=== PATIENT | male | born 1950 | race Caucasian/White ===

== ENCOUNTER 2018-01-21 14:24 | Inpatient (IN) ==
--- NOTE | 2018-01-21 15:01 | Emergency Department Note ---
ED Disposition Clinical Impression: Hypokalemia, Vomiting and diarrhea Disposition: Still a Patient Condition on Discharge: Good Referrals: David Thibodeaux MD [Primary Care Provider] - - Critical Care Critical Care Time: No Attestation: On 01/21/18, the high probability of a clinically significant, sudden or life threatening deterioration of the following system(s) required my full and direct attention, intervention and personal management. The time I documented below is in addition to time spent performing reported procedures but includes the following listed in this critical care notation. Medical Decision Making - Satish Inquiry Pt receiving controlled substance: No Vital Signs: 01/21/18 14:43 01/21/18 14:56 01/21/18 15:21 Temperature 98.0 F Temperature Source Temporal Artery Scan Pulse Rate [Right Brachial] 83 76 76 Respiratory Rate 24 20 18 Blood Pressure [Right Arm] 173/83 166/71 163/71 Blood Pressure Mean [Right Arm] 113 102 101 Blood Pressure Source [Right Arm] Automatic Cuff Automatic Cuff Automatic Cuff Blood Pressure Position [Right Arm] Sitting Sitting Sitting 02 Sat by Pulse Oximetry 97 95 95 Oxygen Delivery Method Room Air Room Air Room Air - Lab Data Lab Results 01/21/18 14:50: WBC 9.3, RBC 5.70, Hgb 15.9, Hct 48.4, MCV 85.0, MCH 27.9, MCHC 32.8, RDW 15.0, Plt Count 208, MPV 9.3, Neut % (Auto) 61.1, Lymph % (Auto) 26.5 , [place] % (Auto) 10.4 H, Eos % (Auto) 1.5, Baso % (Auto) 0.4, Neut # (Auto) 5.7, Lymph # (Auto) 2.5, [place] # (Auto) 1.0, Eos # (Auto) 0.1, Baso # (Auto) 0.0 01/21/18 14:50: Sodium 146 H, Potassium 2.8 L*, Chloride 109 H, Carbon Dioxide 26, Anion Gap 13.8, BUN 13, Creatinine 1.30, Estimated Creat Clear 69, Estimated GFR 55 L, Est GFR ( Amer) 67, Glucose 119 H, Calcium 9.0, Total Bilirubin 0.6, AST 10 L, ALT 32, Alkaline Phosphatase 84, Total Protein 7.2, Albumin 3.3 L, Globulin 3.9 H, Albumin/Globulin Ratio 0.8 L 01/21/18 14:50: Total Creatine Kinase 104, CK-MB (CK-2) 1.9, CK-MB (CK-2) Rel Index 1.8, Troponin I < 0.02 01/21/18 14:50: Urine Color Yellow, Urine Appearance Sl cloudy, Urine pH 7.0, Ur Specific [place] 1.010, Urine Protein 1+, Urine Glucose (UA) Negative, Urine Ketones Negative, Urine Blood Trace-i, Urine Nitrate Positive, Urine Bilirubin Negative, Urine Urobilinogen 0.2, Ur Leukocyte Esterase 3+ A, Urine WBC 20-50, Ur Squamous Epith Cells Occasional, Urine Bacteria 3+ 01/21/18 14:50: Lactic Acid 1.7 Result diagrams: 01/21/18 14:50 01/21/18 14:50 Orders (Tests/Meds): ED MEDICATIONS Generic Name Dose Route Start Last Admin Trade Name Freq PRN Reason Stop Dose Admin Sodium Chloride 1,000 mls @ 999 mls/hr 01/21/18 15:00 01/21/18 14:55 Sod Chlor 0.9% 1000ml Bag IV 01/21/18 16:00 999 mls/hr .Q1H1M DAVID Administration Discontinued Medications Generic Name Dose Route Start Last Admin Trade Name Freq PRN Reason Stop Dose Admin Ceftriaxone Sodium 1 gm/ 50 mls @ 100 mls/hr 01/21/18 15:30 Sodium Chloride IV 02/04/18 15:29 Q24H DAVID Protocol Potassium Chloride 40 meq 01/21/18 15:29 Klor-Con 20meq Tablet PO 01/21/18 15:30 ONCE ONE ORDERS Category Date Time Status XR chest portable Stat Exams 01/21/18 14:47 Taken Blood Culture Stat Micro 01/21/18 14:50 Received Urine Culture Stat Micro 01/21/18 14:50 Received - ECG Data Tracing #1 EKG interpreted by Bala Reeder MD: Rhythm: sinus Rate: 77 [place]: normal Ectopy: Premature atrial contractions, premature ventricular contractions Conduction: normal ST Segment Changes: Nonspecific T Wave Changes: none Q Waves: none No evidence of acute ischemia or injury - Physician Consults Physician Consulted: Pierre Thibodeaux Time: 15:37 Reason -: Admission Comment/Response: Agrees to admit the patient to the hospital. We discussed the patient's clinical information, including history, exam, laboratory and radiology results and ED course. Per hospital procedure, I will write temporary bridge inpatient orders on the patient. Specific orders requested by the admitting physician: No antibiotics at this time. He will see the patient today. 40 mEq of potassium now and tonight. IV fluids with potassium. General Adult HPI - General Chief complaint: Weakness Stated complaint: Nausea, vomitting, weakness Time Seen by Provider: 01/21/18 15:10 Mode of Arrival: Ambulatory Limitations: No Limitations Description of Symptoms (Recalled from ER Triage Doc. by RN): N/V/D AND WEAKNESS OVERALL X 2 WEEKS SINCE HE HAD HIS LAST "CANCER SHOT". STATES "I JUST FEEL SICK" ; HISTORY OF LIVER CA, BLADDER CA AND PROSTATE CA. - History of Present Illness HPI narrative: Complains of vomiting, diarrhea, and generalized weakness, low-grade fevers since chemotherapy shot 2 weeks ago. He has cancer in his liver, status post removal of bladder and prostate due to cancer. States that he has a ureterostomy and gets frequent urinary tract infections, which responded to Cipro. Cannot take Levaquin because it makes him sick. Also has a history of Clostridium difficile. - Related Data Home Medications Medication Instructions Recorded Confirmed albuterol sulfate 90 mcg/actuation 1 puff INHALATION Q4-6H PRN 11/21/17 breath activated powder inhaler alprazolam 0.5 mg tablet 0.25 mg PO BID 11/21/17 amlodipine 10 mg tablet 10 mg PO ONCE 11/21/17 bisoprolol fumarate 5 mg tablet 5 mg PO ONCE 11/21/17 budesonide-formoterol HFA 160 2 puff INHALATION BID 11/21/17 mcg-4.5 mcg/actuation aerosol inhaler diphenoxylate-atropine 2.5 1 tab PO Q6H PRN tab 11/21/17 mg-0.025 mg tablet hydrocodone 7.5 mg-acetaminophen 1 tab PO Q4-6H PRN 11/21/17 325 mg tablet lanreotide 60 mg/0.2 mL 60 mg SUB-Q Q4W 11/21/17 subcutaneous syringe levofloxacin 500 mg tablet 500 mg PO Q24H 11/21/17 loratadine 10 mg capsule 10 mg PO ONCE 11/21/17 Allergies Allergy/AdvReac Type Severity Reaction Status Date / Time Iodinated Contrast Media - Allergy Unknown Verified 11/21/17 12:39 Oral and [Iodinated Contrast Media - IV Dye] Penicillins Allergy Unknown Verified 11/21/17 12:39 sulfadimethoxine Allergy Unknown I-RASH Verified 11/21/17 12:39 [SULFADIMETHOXINE] hydromorphone [From DILAUDID] AdvReac Unknown HALLUCINATI Verified 11/21/17 12: 39 ON [facility] History I have reviewed the patient's past medical history: Yes Medical History: Reports:: Cancer, Chronic Obstructive Pulmonary Disease (COPD) , Hypertension Other Surgeries: Yes: Appendectomy, Colon Resection Comment: Radical cystectomy, Spinal tumor, I&D abd wall abcess, S/P Trach, Prostectomy, Urostomy - Social History Educational Level: Completed High School Smoking Status: Former smoker Tobacco Type: cigarettes Alcohol Intake: never Substance Use Type: denies use - Psychiatric History Expresses thoughts of harming self/others: None Suicide Plan Description: No Plan Family Hx:: Asthma, Cancer, Diabetes, Hypertension ROS Obtained: Yes All systems reviewed & no additional complaints - Constitutional Constitutional: Reports fever(s) (Low-grade) - Cardiovascular Cardiovascular: Denies chest pain - Gastrointestinal Gastrointestingal: Reports: diarrhea, nausea, vomiting - Neurologic Neurologic: Reports weakness (Generalized) Physical Exam - General General appearance: alert, in no apparent distress - Head Head exam: atraumatic, normocephalic, normal inspection - Eye Eye exam: Present: normal appearance, PERRL, EOMI - ENT ENT exam: Present: normal exam, normal oropharynx, mucous membranes moist, TM's normal bilaterally, normal external ear exam - Neck Neck exam: Present: normal inspection, full ROM, trachea midline. Absent: meningismus, lymphadenopathy - Chest Chest inspection: Present: normal inspection, symmetric chest wall rise. Absent : tenderness - Respiratory Respiratory exam: Present: normal lung sounds bilaterally. Absent: respiratory distress - Cardiovascular Cardiovascular exam: Present: regular rate, normal rhythm. Absent: JVD - Abdominal Exam Abdominal exam: Present: soft, normal bowel sounds. Absent: distention, tenderness, guarding - Extremities Exam Extremities exam: Present: normal inspection, full ROM, normal capillary refill. Absent: calf tenderness - Back Exam Back exam: Present: normal inspection. Absent: tenderness - Neurological Exam Neurological exam: Present: alert, oriented X3 - Psychiatric Psychiatric exam: Present: normal affect, normal mood - Skin Skin exam: Present: warm, dry, intact, normal color
[2018-01-21 15:02] LABS: Microscopic, Urine URINE MICROSCOPIC (MICROSCOPIC)
[2018-01-21 15:06] LABS: Appearance,Urine SL CLOUDY (Clear); Basophils % 0.4 % (0.1-2.0); Bilirubin,Urine Negative (Negative); Blood, Urine TRACE-I (Negative); Color,Urine YELLOW (Yellow); Eosinophils # 0.1 K/mm3 (0.0-0.4); Eosinophils % 1.5 % (0.1-12.0); Glucose,Urine (UA) Negative (Negative); Hematocrit 48.4 % (42.0-52.0); Hemoglobin 15.9 g/dL (14.1-18.0); Ketones,Urine Negative (Negative); Leukocyte Esterase,Urine 3+ (Negative); Lymphocytes # 2.5 K/mm3 (0.7-4.5); Lymphocytes % 26.5 K/mm3 (10-50); Mean Corpuscular HGB Conc 32.8 g/dL (31.8-35.4); Mean Corpuscular Hemoglobin 27.9 pg (27.0-31.2); Mean Platelet Volume 9.3 fl (7.4-10.4); Monocytes % 10.4 % (1.7-9.3); Neutrophils # 5.7 K/mm3 (1.8-7.8); Neutrophils % 61.1 % (37.0-80.0); Platelet Count 208 K/mm3 (142-424); Protein,Urine 1+ (Negative); Urobilinogen,Urine 0.2 EU/dl (0.2); White Blood Count 9.3 K/mm3 (4.8-10.8)
[2018-01-21 15:15] LABS: Bacteria,Urine 3+ /lpf; Squamous Epithelial Cell,Urine Occasional #/hpf (0-5); WBC,Urine 20-50 #/hpf (0-3)
[2018-01-21 15:16] LABS: Albumin Level 3.3 gm/dL (3.4-5.0); Albumin/Globulin Ratio 0.8 (1.1-1.8); Anion Gap 13.8 mEq/L (5-15); Bilirubin,Total 0.6 mg/dL (0.2-1.0); Globulin 3.9 gm/dl (1.3-3.2); Total Protein,Serum 7.2 gm/dL (6.4-8.2)
[2018-01-21 15:17] LABS: Potassium 2.8 mmoL/L (3.5-5.1)
[2018-01-21 15:20] LABS: Creatine Kinase 104 U/L (39-308)
--- NOTE | 2018-01-21 17:12 | History & Physical Report ---
*Admission Date: 01/21/18 *Chief complaint: fatigue, hypokalemia *History of present illness: Mr. Block is a 67yo M with Hx of cancer in his liver, status post removal of bladder and prostate due to cancer. He presents after receiving chemotherapy injection 2 weeks ago and developing prolonged vomiting, diarrhea, and generalized weakness, with low-grade fevers. States that he has this type of response to his chemo recently over the past few months, this episode is the most severe. He has not had celsa fever, complains of dull back ache but not pain consistent with his past UTIs. He has felt more fatigued and has a Hx of hypokalemia due to his report when he feels like this. Of note he has a ureterostomy and gets frequent urinary tract infections, which responded to Cipro. Cannot take Levaquin because it makes him sick. Also has a history of Clostridium difficile. at bedside is concerned that he may have C diff due to his loose stools. Otherwise denies lethargy, GARCIA, changes in vision, rashes. [facility] History Medical History: Reports:: Cancer, Chronic Obstructive Pulmonary Disease (COPD) , Hypertension Denies:: Diabetes Mellitus Type 1, Diabetes Mellitus Type 2, MRSA Other Surgeries: Yes: Appendectomy, Colon Resection Amputation: No Fractures: No - *Social History Educational Level: Attended High School Smoking Status: Former smoker Tobacco Type: cigarettes Alcohol Intake: never Substance Use Type: denies use Occupational Status: retired, disabled Housing: house Household Members: spouse - Psychiatric History Expresses thoughts of harming self/others: None Suicide Plan Description: No Plan *Family Hx:: Asthma, Cancer, Diabetes, Hypertension Review of Systems - Review of Systems Review of systems:: pertinent systems reviewed and negative unless documented below - *Neurologic Reports weakness (Generalized) Meds Home Medications Medication Instructions Recorded Confirmed Type albuterol sulfate 90 mcg/actuation 1 puff INHALATION Q4-6H PRN 11/21/17 History breath activated powder inhaler alprazolam 0.5 mg tablet 0.25 mg PO BID 11/21/17 01/21/18 History amlodipine 10 mg tablet 10 mg PO DAILY 11/21/17 01/21/18 History budesonide-formoterol HFA 160 2 puff INHALATION BID 11/21/17 01/21/18 History mcg-4.5 mcg/actuation aerosol inhaler diphenoxylate-atropine 2.5 1 tab PO Q6H PRN tab 11/21/17 01/21/18 History mg-0.025 mg tablet hydrocodone 7.5 mg-acetaminophen 1 tab PO Q4-6H PRN 11/21/17 01/21/18 History 325 mg tablet lanreotide 60 mg/0.2 mL 60 mg SUB-Q Q4W 11/21/17 01/21/18 History subcutaneous syringe loratadine 10 mg capsule 10 mg PO DAILY 11/21/17 01/21/18 History raNITIdine HCl [Zantac] 150 mg PO DAILY 01/21/18 01/21/18 History Allergies Allergy/AdvReac Type Severity Reaction Status Date / Time Iodinated Contrast Media - Allergy Unknown Verified 11/21/17 12:39 Oral and [Iodinated Contrast Media - IV Dye] Penicillins Allergy Unknown Verified 11/21/17 12:39 sulfadimethoxine Allergy Unknown I-RASH Verified 11/21/17 12:39 [SULFADIMETHOXINE] hydromorphone [From DILAUDID] AdvReac Unknown HALLUCINATI Verified 11/21/17 12: 39 ON Exam Vital signs and Labs for Last 24 Hours: Temp Pulse Resp BP Pulse Ox 97.8 F 71 18 188/70 96 01/21/18 16:39 01/21/18 16:39 01/21/18 16:39 01/21/18 16:39 01/21/18 16:39 Laboratory Results - last 24 hr 01/21/18 14:50: WBC 9.3, RBC 5.70, Hgb 15.9, Hct 48.4, MCV 85.0, MCH 27.9, MCHC 32.8, RDW 15.0, Plt Count 208, MPV 9.3, Neut % (Auto) 61.1, Lymph % (Auto) 26.5 , [place] % (Auto) 10.4 H, Eos % (Auto) 1.5, Baso % (Auto) 0.4, Neut # (Auto) 5.7, Lymph # (Auto) 2.5, [place] # (Auto) 1.0, Eos # (Auto) 0.1, Baso # (Auto) 0.0 01/21/18 14:50: Sodium 146 H, Potassium 2.8 L*, Chloride 109 H, Carbon Dioxide 26, Anion Gap 13.8, BUN 13, Creatinine 1.30, Estimated Creat Clear 69, Estimated GFR 55 L, Est GFR ( Amer) 67, Glucose 119 H, Calcium 9.0, Total Bilirubin 0.6, AST 10 L, ALT 32, Alkaline Phosphatase 84, Total Protein 7.2, Albumin 3.3 L, Globulin 3.9 H, Albumin/Globulin Ratio 0.8 L 01/21/18 14:50: Total Creatine Kinase 104, CK-MB (CK-2) 1.9, CK-MB (CK-2) Rel Index 1.8, Troponin I < 0.02 01/21/18 14:50: Urine Color Yellow, Urine Appearance Sl cloudy, Urine pH 7.0, Ur Specific [place] 1.010, Urine Protein 1+, Urine Glucose (UA) Negative, Urine Ketones Negative, Urine Blood Trace-i, Urine Nitrate Positive, Urine Bilirubin Negative, Urine Urobilinogen 0.2, Ur Leukocyte Esterase 3+ A, Urine WBC 20-50, Ur Squamous Epith Cells Occasional, Urine Bacteria 3+ 01/21/18 14:50: Lactic Acid 1.7 I & O for Last 24 hours: Intake & Output 01/18/18 01/19/18 01/20/18 01/21/18 23:59 23:59 23:59 23:59 Weight 86.353 kg - *Routine HEENT Exam Head: Present: normocephalic, atraumatic Eye: Present: EOMI. Absent: conjunctival icterus, periorbital ecchymosis ENT: Present: mucous membranes moist - *Routine Neck Exam Present: supple, lymphadenopathy - *Routine Respiratory Exam Present: CTA bilaterally, prolonged expiratory phase, rales. Absent: stridor, wheezes - *Routine Cardiovascular Exam Present: RRR, Normal S1, Normal S2. Absent: murmur - *Routine Abdominal Exam Present: soft, normoactive bowel sounds, tenderness (nonfocal tenderness. no CVA tenderness to percussion), ostomy (ilial conduit, pink, well perfused, urine not cloudy or blood tinged.) - *Routine Rectal Exam Patient deferred: visual exam - *Routine Exam Patient deferred: penile exam - *Routine Extremities Exam Absent: cyanosis, clubbing, edema - *Routine Skin Exam Present: intact. Absent: cyanosis - *Routine Neurological Exam Present: alert, oriented X3, CN II-XII intact H&P: Result - Labs Labs: Short CBC 01/21/18 Range/Units 14:50 WBC 9.3 (4.8-10.8) K/mm3 Hgb 15.9 (14.1-18.0) g/dL Hct 48.4 (42.0-52.0) % Plt Count 208 (142-424) K/mm3 BMP 01/21/18 14:50 Sodium 146 H Potassium 2.8 L* Chloride 109 H Carbon Dioxide 26 BUN 13 Creatinine 1.30 Glucose 119 H Calcium 9.0 Cardiac Enzymes 01/21/18 Range/Units 14:50 Total Creatine Kinase 104 (39-308) U/L CK-MB (CK-2) 1.9 (0.0-3.6) ng/ml Troponin I < 0.02 (0.00-0.06) ng/ml Liver Function 01/21/18 Range/Units 14:50 Total Bilirubin 0.6 (0.2-1.0) mg/dL AST 10 L (15-37) U/L ALT 32 (12-78) U/L Alkaline Phosphatase 84 (46-116) U/L Albumin 3.3 L (3.4-5.0) gm/dL Urine 01/21/18 Range/Units 14:50 Urine Color Yellow (Yellow) Urine Appearance Sl cloudy (Clear) Urine pH 7.0 (5.0-8.5) Ur Specific [place] 1.010 (1.005-1.030) Urine Protein 1+ (Negative) Urine Glucose (UA) Negative (Negative) Assessment and Plan (1) COPD (chronic obstructive pulmonary disease) Current visit: Yes Status: Acute Category: Medical Code(s): J44.9 - Chronic obstructive pulmonary disease, unspecified POA - continue home meds - Goal O2 Sats >88% while asleep and >92 while awake. (2) Cancer Current visit: Yes Status: Acute Category: Medical Code(s): C80.1 - Malignant (primary) neoplasm, unspecified (3) Hypokalemia Current visit: Yes Status: Acute Category: Medical Code(s): E87.6 - Hypokalemia likey due to GI loss - PO and IV replacement - Repeat Labs in AM. (4) Vomiting and diarrhea Current visit: Yes Status: Acute Category: Medical Code(s): R11.10 - Vomiting, unspecified; R19.7 - Diarrhea, unspecified phenergan for nausea MIVF overnight for 1L advance diet as tolerated (5) Hypertension Current visit: Yes Status: Acute Category: Medical Code(s): I10 - Essential (primary) hypertension continue home meds
[2018-01-22 06:20] LABS: Anion Gap 9.9 mEq/L (5-15)
[2018-01-22 06:28] LABS: Calcium 7.5 mg/dL (8.5-10.1)
[2018-01-22 06:29] LABS: Potassium 2.9 mmoL/L (3.5-5.1)
--- NOTE | 2018-01-22 07:08 | Discharge Summary ---
General - General Admission date:: 01/21/18 Discharge date: 01/22/18 HPI HPI: Mr. Block is a 67yo M with Hx of cancer in his liver, status post removal of bladder and prostate due to cancer. He presents after receiving chemotherapy injection 2 weeks ago and developing prolonged vomiting, diarrhea, and generalized weakness, with low-grade fevers. States that he has this type of response to his chemo recently over the past few months, this episode is the most severe. He has not had celsa fever, complains of dull back ache but not pain consistent with his past UTIs. He has felt more fatigued and has a Hx of hypokalemia due to his report when he feels like this. Of note he has a ureterostomy and gets frequent urinary tract infections, which responded to Cipro. Cannot take Levaquin because it makes him sick. Also has a history of Clostridium difficile. at bedside is concerned that he may have C diff due to his loose stools. Otherwise denies lethargy, GARCIA, changes in vision, rashes. Hospital Course Hospital Course: Patient was admitted and placed on IV fluids which he ultimately requested to be discontinued overnight as this slowed him down when attempting to reach the bathroom. However patient did not have any further vomiting or diarrhea after admission. His diet was advanced and on the day following admission he tolerated a regular diet. Patient's potassium was 2.8 on admission and after receiving oral potassium and some potassium through his IV it increased to 2.9. On the morning of the the patient was ordered a total of 60 mEq of potassium per IV as well as 20 mEq of potassium 3 times a day. Patient was discharged home later in the day and will follow-up in my office in 1 week Objective Vital signs: Temp Pulse Resp BP Pulse Ox 98.1 F 70 18 167/61 96 01/22/18 04:10 01/22/18 04:10 01/22/18 04:10 01/22/18 04:10 01/22/18 04:10 Results Labs on day of discharge: Labs from last 24 hours 01/22/18 01/21/18 01/21/18 05:40 14:50 14:50 WBC RBC Hgb Hct MCV MCH MCHC RDW Plt Count MPV Neut % (Auto) Lymph % (Auto) [place] % (Auto) Eos % (Auto) Baso % (Auto) Neut # (Auto) Lymph # (Auto) [place] # (Auto) Eos # (Auto) Baso # (Auto) Sodium 147 H Potassium 2.9 L* Chloride 112 H Carbon Dioxide 28 Anion Gap 9.9 BUN 10 Creatinine 1.16 Estimated Creat Clear 77 Estimated GFR 63 Est GFR ( Amer) 76 Glucose 145 H D Lactic Acid 1.7 Calcium 7.5 L D Total Bilirubin AST ALT Alkaline Phosphatase Total Creatine Kinase CK-MB (CK-2) CK-MB (CK-2) Rel Index Troponin I Total Protein Albumin Globulin Albumin/Globulin Ratio Urine Color Yellow Urine Appearance Sl cloudy Urine pH 7.0 Ur Specific [place] 1.010 Urine Protein 1+ Urine Glucose (UA) Negative Urine Ketones Negative Urine Blood Trace-i Urine Nitrate Positive Urine Bilirubin Negative Urine Urobilinogen 0.2 Ur Leukocyte Esterase 3+ A Urine WBC 20-50 Ur Squamous Epith Cells Occasional Urine Bacteria 3+ 01/21/18 01/21/18 01/21/18 14:50 14:50 14:50 WBC 9.3 RBC 5.70 Hgb 15.9 Hct 48.4 MCV 85.0 MCH 27.9 MCHC 32.8 RDW 15.0 Plt Count 208 MPV 9.3 Neut % (Auto) 61.1 Lymph % (Auto) 26.5 [place] % (Auto) 10.4 H Eos % (Auto) 1.5 Baso % (Auto) 0.4 Neut # (Auto) 5.7 Lymph # (Auto) 2.5 [place] # (Auto) 1.0 Eos # (Auto) 0.1 Baso # (Auto) 0.0 Sodium 146 H Potassium 2.8 L* Chloride 109 H Carbon Dioxide 26 Anion Gap 13.8 BUN 13 Creatinine 1.30 Estimated Creat Clear 69 Estimated GFR 55 L Est GFR ( Amer) 67 Glucose 119 H Lactic Acid Calcium 9.0 Total Bilirubin 0.6 AST 10 L ALT 32 Alkaline Phosphatase 84 Total Creatine Kinase 104 CK-MB (CK-2) 1.9 CK-MB (CK-2) Rel Index 1.8 Troponin I < 0.02 Total Protein 7.2 Albumin 3.3 L Globulin 3.9 H Albumin/Globulin Ratio 0.8 L Urine Color Urine Appearance Urine pH Ur Specific [place] Urine Protein Urine Glucose (UA) Urine Ketones Urine Blood Urine Nitrate Urine Bilirubin Urine Urobilinogen Ur Leukocyte Esterase Urine WBC Ur Squamous Epith Cells Urine Bacteria Preliminary micro results at discharge 01/21/18 14:50 Urine Culture - Preliminary Urine,Clean Catch Gram Negative Rods DS: Diagnosis - Discharge Diagnosis (1) Vomiting and diarrhea Status: Acute (2) Hypokalemia Status: Acute (3) COPD (chronic obstructive pulmonary disease) Status: Acute (4) Cancer Status: Acute (5) Hypertension Status: Acute Discharge Plan - Patient Discharge Instructions ACTIVITY: Continue current activity DIET: continue same diet - Follow up Plan Follow up with: David Thibodeaux MD [Primary Care Provider] - 01/29/18 3:00 pm Disposition: Home, Self-Skilled Nursing Medications: Home Medications Medication Instructions Recorded Confirmed Type alprazolam 0.5 mg tablet 0.25 mg PO BID 11/21/17 01/21/18 History amlodipine 10 mg tablet 10 mg PO DAILY 11/21/17 01/21/18 History budesonide-formoterol HFA 160 2 puff INHALATION BID 11/21/17 01/21/18 History mcg-4.5 mcg/actuation aerosol inhaler diphenoxylate-atropine 2.5 1 tab PO Q6H PRN tab 11/21/17 01/21/18 History mg-0.025 mg tablet hydrocodone 7.5 mg-acetaminophen 1 tab PO Q4-6H PRN 11/21/17 01/21/18 History 325 mg tablet lanreotide 60 mg/0.2 mL 60 mg SUB-Q Q4W 11/21/17 01/21/18 History subcutaneous syringe loratadine 10 mg capsule 10 mg PO DAILY 11/21/17 01/21/18 History raNITIdine HCl [Zantac] 150 mg PO DAILY 01/21/18 01/21/18 History Albuterol Sulfate [Albuterol HFA 1 puff IH Q4HP PRN 01/22/18 01/22/18 History Inhaler] Prescriptions/Medication Reconciliation: New Potassium Chloride [Klor-con 20 mEq tablet] 20 meq PO BID #60 tab Continue diphenoxylate-atropine 2.5 mg-0.025 mg tablet 1 tab PO Q6H PRN tab PRN Reason: Diarrhea amlodipine 10 mg tablet 10 mg PO DAILY hydrocodone 7.5 mg-acetaminophen 325 mg tablet 1 tab PO Q4-6H PRN PRN Reason: pain loratadine 10 mg capsule 10 mg PO DAILY budesonide-formoterol HFA 160 mcg-4.5 mcg/actuation aerosol inhaler 2 puff INHALATION BID lanreotide 60 mg/0.2 mL subcutaneous syringe 60 mg SUB-Q Q4W alprazolam 0.5 mg tablet 0.25 mg PO BID raNITIdine HCl [Zantac] 150 mg PO DAILY No Action Albuterol Sulfate [Albuterol HFA Inhaler] 1 puff IH Q4HP PRN PRN Reason: Shortness Of Breath Or Wheezing
--- NOTE | 2018-01-22 07:17 | Pharmacy Consult Notes ---
[facility] Pharmacy VTE Monitoring - Patient Demographics Admission date: 01/21/18 Report Date: 01/22/18 Time: 07:17 Allergies/Adverse Reactions: Patient Allergies Iodinated Contrast Media - Oral and [Iodinated Contrast Media - IV Dye] Allergy (Unknown, Verified 11/21/17 12:39) Penicillins Allergy (Unknown, Verified 11/21/17 12:39) sulfadimethoxine [SULFADIMETHOXINE] Allergy (Unknown, Verified 11/21/17 12:39) I-RASH hydromorphone [From DILAUDID] Adverse Reaction (Unknown, Verified 11/21/17 12:39 ) HALLUCINATION Height: 1.8 m Weight: 86.353 kg Patient Problems: Current Active Problems Hypokalemia (Acute) Vomiting and diarrhea (Acute) COPD (chronic obstructive pulmonary disease) (Acute) Cancer (Acute) Hypertension (Acute) - VTE Risk Labs: VTE Related Lab Results Hgb 15.9 g/dL (14.1-18.0) 01/21/18 14:50 Hct 48.4 % (42.0-52.0) 01/21/18 14:50 Plt Count 208 K/mm3 (142-424) 01/21/18 14:50 BUN 10 mg/dL (7-18) 01/22/18 05:40 Creatinine 1.16 mg/dL (0.70-1.30) 01/22/18 05:40 Estimated Creat Clear 77 mL/min (0-300) 01/22/18 05:40 - Prophylaxis VTE Prophylaxis Ordered?: Yes Types of VTE Prophylaxis: TEDS Knee High Location of Applied Device: Bilateral Lower Extremeties - VTE Diagnosis Confirmed Treatment or plan recommended: Continue Current Treatment
== END 2018-01-22 14:45 | disposition home or self-care (01) ==
LOC: ER 14:24 → 2ND 14:24 → OBSVTOIN 16:35 → INTOOBSV 16:37 → 2ND 16:38
PROVIDERS: ADMIT Internal Medicine Adolescent Medicine; ATTEND Family Medicine

== ENCOUNTER → 2018-02-20 11:23 | Outpatient (CLI) | payer MEDICARE, OTHER, SELFPAY ==
[2018-02-20 12:23] LABS: Anion Gap 14.5 mEq/L (5-15); Blood Urea Nitrogen 15 mg/dL (7-18); Calcium 8.8 mg/dL (8.5-10.1); Carbon Dioxide 24 mmol/L (21.0-32.0); Chloride 110 mmol/L (98-107); Creatinine,Serum 1.28 mg/dL (0.70-1.30); Estimated Glomerular Filt Rate 56 ml/min (>60); GFR (African American) 68 ML/MIN (>60); Glucose 104 mg/dL (74-106); Potassium 3.5 mmoL/L (3.5-5.1); Sodium 145 mmol/L (136-145)
== END ==
PROVIDERS: PCP Family Medicine; Visit Provider Internal Medicine Hematology & Oncology
DX: E87.6 Hypokalemia (principal)
CPT/HCPCS: 36415; 80048